=== PATIENT | male | born 1985 | race Caucasian/White ===

== ENCOUNTER → 2021-06-02 10:49 | Outpatient (CLI) | payer OTHER, SELFPAY ==
[2021-06-02 19:26] LABS: Add Manual Diff / Slide Review NO; Basophils Absolute Auto 100 /uL (0-100); Eosinophils Absolute Auto 100 /uL (0-450); Eosinophils Percent Auto 1.7 % (2-4); Hematocrit 40.5 % (41-53); Hemoglobin 13.7 g/dL (13.5-17.5); Lymphocytes Absolute Auto 2100 /uL (1100-4500); Lymphocytes Percent Auto 31.8 % (25-40); Mean Corpuscular HGB Conc 33.8 % (30-36); Mean Corpuscular Hemoglobin 29.7 PG (26-34); Mean Corpuscular Volume 87.8 fL (80-100); Monocytes Absolute Auto 600 /uL (0-900); Monocytes Percent Auto 9.1 % (3-14); Neutrophils Absolute Auto 3700 /uL (1500-7000); Neutrophils Percent Auto 56.4 % (50-75); Platelet Count 231 X10^3/uL (150-400); Red Blood Cell Count 4.62 X10^6/uL (4.5-5.9); Red Cell Distribution Width 12.7 % (11.6-14.8); White Blood Cell Count 6.5 X10^3/uL (4.5-11.0)
[2021-06-02 19:51] LABS: Prostate Specific Antigen Scrn 0.503 ng/mL (0.1-4.0)
[2021-06-02 20:39] LABS: Urine N gonorrhoeae NOT DETECTED
[2021-06-02 20:41] LABS: Urine Chlamydia NOT DETECTED
== END ==
PROVIDERS: PCP Physician Assistant; Visit Provider Physician Assistant
DX: N50.819 Testicular pain, unspecified (principal); Z12.5 Encounter for screening for malignant neoplasm of prostate
CPT/HCPCS: 81002; 85025; 87491; 87591; G0103

== ENCOUNTER → 2021-06-17 11:19 | Outpatient (CLI) | payer OTHER, SELFPAY ==
--- NOTE | 2021-06-17 11:20 | DI.US.S_ITS ---
PROCEDURE: US SCROTUM INDICATIONS: TESTICULAR AND PERINEAL AREA. INCLUDE PERINEAL AREA. TECHNIQUE: Real-time scanning was performed of the scrotum and testicles, with image documentation. Color and pulse Doppler interrogation was performed of both testicles. COMPARISON: [facility], , TESTICLE IMAGING, 11/05/2015, 14:20. FINDINGS: Right: Testicle is normal in size at 5.2 x 3.4 x 2.6 cm, and homogenous in echotexture. Epididymis is mildly enlarged measuring 1.3 centimeters in thickness. There is increased vascularity within the right epididymis. No hydrocele or varicoceles. Overlying scrotal skin is normal in thickness. Left: Testicle is normal in size at 5.1 x 3.5 x 2.5 cm, and homogeneous in echotexture. Epididymis is normal in overall size and morphology. Multiple cysts noted in the left epididymal tail. Largest left epididymis cyst measures 1.0 x 0.6 x 0.6 centimeters. Mildly increased vascularity noted in the left epididymis. No hydrocele or varicoceles. Overlying scrotal skin is normal in thickness. Doppler: Color and pulse Doppler demonstrate normal and symmetric arterial flow in both testicles. IMPRESSION: 1. No sonographic abnormality identified in the testicles. No evidence of testicular torsion. Please note ultrasound cannot exclude intermittent twisting clear torsion. 2. Mildly enlarged right epididymis with increased vascularity compatible with epididymitis. 3. Increased vascularity involving the left epididymis suspicious for epididymitis. Dictated by: Michelle Azar MD, PhD on 06/17/2021 at 14:29 Approved by: Michelle Azar MD, PhD on 06/17/2021 at 14:39
== END ==
PROVIDERS: PCP Physician Assistant; Referring Provider Physician Assistant; Visit Provider Physician Assistant
DX: N50.819 Testicular pain, unspecified (principal); N50.89 Other specified disorders of the male genital organs; R10.2 Pelvic and perineal pain
CPT/HCPCS: 76870